=== PATIENT | male | born 1990 | race Caucasian/White ===

== ENCOUNTER 2017-05-06 01:47 | Emergency (ER) | payer SELFPAY ==
[~2017-05-06] VITALS: Ht 172.7 cm; Wt 95.2 kg
[~2017-05-06 01:47] MED LIST: ALBU90OI6 INH; IBUP600 PO
[2017-05-06] MEDS ORDERED: Amoxicillin500 MG PO (03:13)
== END 2017-05-06 03:24 | disposition home or self-care (01) ==
LOC: ER 01:47
DX: K03.81 Cracked tooth (principal)
CPT/HCPCS: 99282